=== PATIENT | male | born 1965 | race Caucasian/White ===

== ENCOUNTER 2017-01-30 07:36 | Day surgery (SDC) | payer BC ==
[~2017-01-30 07:36] MED LIST: Buffered Lidocaine 0.9% SYRIN* 5 ML/SYR SYRINGE INTRADERM ONE; Famotidine IV* 10 MG/ML 2 ML (20 mg) IV ONE; Metoclopramide TAB* 10 MG PO ONE
[2017-01-30] MEDS ORDERED: Lidocaine 2% PF * 5 ML VIAL ONE (08:09)
[2017-01-30] MEDS ORDERED: fentaNYL* 50 MCG/ML 2 ML VIAL (100 MCG VIAL) ONE (08:09)
[2017-01-30] MEDS ORDERED: Famotidine IV* 10 MG/ML 2 ML (20 mg) ONE (08:09)
[2017-01-30] MEDS ORDERED: Propofol* 10 MG/ML 20 ML BTL IV PUSH ONE (08:09)
[2017-01-30] MEDS ORDERED: Metoclopramide TAB* 10 MG ONE (08:09)
[2017-01-30] MEDS ORDERED: Ondansetron INJ* 2 MG/ML VIAL ONE (08:09)
[2017-01-30] MEDS ORDERED: Dexamethasone IV* 4 MG/ML 1 ML (4 MG) ONE (08:09)
[2017-01-30] MEDS ORDERED: KETAMINE HCL* 50 MG/ML 10 ML VIAL ONE (08:10)
[2017-01-30] MEDS ORDERED: Midazolam* 1 MG/ML 5 ML VIAL (5 MG) ONE (08:10)
[2017-01-30] MEDS ORDERED: Cisatracurium* 2 MG/ML MDV 5 ML ONE (08:10)
[2017-01-30] MEDS ORDERED: Oxymetazoline 0.05% NASAL SPR* 15 ML BTL ONE ×2 (08:13→08:31)
[2017-01-30] MEDS ORDERED: Bacitracin OINTMENT* 1 TUBE ONE (08:31)
[2017-01-30] MEDS ORDERED: Lidocaine 4% TOPICAL* 50 ML TOP.SOLN ONE (08:31)
[2017-01-30] MEDS ORDERED: Lidocaine 1% MPF wEPI 200,000* 30 ML SDV ONE (08:31)
[2017-01-30] MEDS ORDERED: oxyCODONE/Acetamin 5/325 MG* TAB PO PRN (08:39)
[2017-01-30] MEDS ORDERED: fentaNYL* 50 MCG/ML 2 ML VIAL (100 MCG VIAL) IV PRN (08:39)
[2017-01-30] MEDS ORDERED: Levalbuterol 0.63MG/3ML NEB INH PRN (08:39)
[2017-01-30] MEDS ORDERED: Ondansetron INJ* 2 MG/ML VIAL IV PRN (08:39)
[2017-01-30] MEDS ORDERED: Scopolamine 1.5 mg* PATCH TRANSDERM PRN (08:39)
[2017-01-30] MEDS ORDERED: EPHEDrine (Pressors)* 50 MG/ML VIAL ONE (09:55)
[2017-01-30 12:35] VITALS: BP 152/86
--- NOTE | 2017-01-31 07:49 | OP ---
DATE OF OPERATION: 01/30/17 - [facility] DATE OF : 63 SURGEON: Parminder Hollins MD PORTABLE PINCH RIVETER: None. ANESTHESIOLOGIST: Zenon Jamil MD ANESTHESIA: General. PRE-OP DIAGNOSES: Right nasal cavity polyp, deviated nasal septum, inferior turbinate hypertrophy, bilateral and chronic maxillary and ethmoid sinusitis bilateral. POST-OP DIAGNOSES: Right nasal cavity polyp, deviated nasal septum, inferior turbinate hypertrophy, bilateral and chronic maxillary and ethmoid sinusitis bilateral. OPERATIVE PROCEDURE: Septoplasty, bilateral inferior turbinate reduction, removal of polyp from right nasal cavity, bilateral maxillary antrostomy, and bilateral anterior ethmoidectomy. ESTIMATED BLOOD LOSS: Negligible. SPECIMENS: Right nasal cavity polyp to Pathology separately. The right and left sinus contents were sent separately as well. DESCRIPTION OF PROCEDURE: This is a 51-year-old male who came to see me for nasal airway obstruction. There was also a sense of fluttering in the right side of his nose. Nasal endoscopy in the office revealed significant right septal deviation with a spur as well as a large polyp in the posterior nasal cavity on the right side. The patient also had bilateral inferior turbinate hypertrophy. On questioning, the patient also had symptoms suggestive of chronic sinusitis and so a preoperative CT scan was done, which did demonstrate evidence of chronic inflammation involving ethmoid and maxillary sinuses bilaterally. On 01/30/17, the patient was brought to the operating room. General anesthesia was induced. An oral endotracheal tube was placed. The patient was draped and time-out was performed. The patient had been decongested with topical Afrin and 4% lidocaine was placed in on pledgets as well. The procedure was begun with nasal endoscopy. Photodocumentation of the right nasal polyp and septal spur was obtained. The procedure was then begun with the septoplasty. Approximately 9 cc of 1% lidocaine with epinephrine were infiltrated into both sides of septum as well as the columella. A left hemitransfixion incision was made. A left mucoperichondrial flap was elevated. The quadrangular cartilage was then incised vertically approximately 1 cm posterior to its caudal margin and this enabled elevation of a right mucoperichondrial flap. The flap was elevated posteriorly over the septal spur. There was a tear of the flap on the right hand side over the septal spur , but there was no corresponding tear on the left-sided flap. With the septum widely exposed, a piece of the quadrangular cartilage anteriorly was removed with a Nawaf swivel knife. This facilitated exposure to the more posterior bony ports of the septum. The septal spur was removed with a Thru-Cutting forceps. Once all of the significantly deviated portions of the septal cartilage and bone were removed, the flaps were laid back down. The septum was not reconstructing until the end of the procedure. At this point, attention was turned towards the right nasal cavity. The large polyp in the right nasal cavity was removed with a straight Blakesley forceps. It appeared to be pedicled on the right middle turbinate on its medial aspect. This was sent in separate specimen in formalin. Attention was then turned to the left nasal cavity. Injections were made into the route of the middle turbinate and lateral nasal wall. The uncinate process was then incised and removed. This facilitated exposure of the natural ostium of the maxillary sinus, which was cannulated with a ball-tip probe, enlarged and then additionally enlarged with a combination of forward and back-biting Thru-Cutting instrumentation. A J- curette was used to enter the ethmoid bulla. Anterior ethmoid air cells were then resected with an up-angled Thru-Cutting forceps. The middle turbinate was bolgerized and then attention was turned to the right nasal cavity. Injections were made in the root of the middle turbinate, body of the middle turbinate, and lateral nasal wall. The middle turbinate was then medialized. The uncinate process was taken down. The natural ostium and the maxillary sinus was identified with a ball-tip probe, enlarged and further enlarged with straight and back-biting Thru-Cutting instrumentation. A J-curette was used to enter the ethmoid bulla and anterior ethmoid air cells were removed with an up- angled Thru-Cutting instruments. The inferior turbinates bilaterally were then medialized. Multiple passes were made through the inferior turbinates with the Elmed bipolar device, it was then lateralized. The piece of quadrangular cartilage was then morcellized and placed between flaps and it was sutured in position with chromic. The hemitransfixion incision was then closed and Stammberger Sinu-Foam gel was placed into the middle meatus bilaterally. Magnetic septal splits were then placed and sutured with Prolene. The patient was returned to the care of the anesthesiologist, extubated and delivered to the PACU in stable condition. [id number]/[facility] #: [id number] JAILYN
[2017-02-02] MEDS ORDERED: Scopolomine PATCH Remove* 1 NOTE MISC PATCH OFF ONE (08:40)
== END 2017-01-30 12:50 | disposition home or self-care (01) ==
LOC: OR 07:36
PROVIDERS: ATTEND Otolaryngology
DX: J32.0 Chronic maxillary sinusitis (principal); J32.2 Chronic ethmoidal sinusitis; J33.0 Polyp of nasal cavity; J34.2 Deviated nasal septum; J34.3 Hypertrophy of nasal turbinates
CPT/HCPCS: 88304; A9270-GY; J1100; J2001; J2250; J2405; J2704; J3010

== ENCOUNTER 2017-07-24 07:52 | Day surgery (SDC) | payer BC ==
[~2017-07-24 07:52] MED LIST changes: -Famotidine IV* 10 MG/ML 2 ML (20 mg) IV ONE; +Ibuprofen TAB* 400 MG ONE; +Ibuprofen TAB* 400 MG PO ONE; -Metoclopramide TAB* 10 MG PO ONE; +Sodium Citrate/Citric Acid* 15 ML UDC ONE; +Sodium Citrate/Citric Acid* 15 ML UDC PO ONE; +ceFAZolin 2 GM PREMIX (*) 2 GM/50 ML BAG IVPB ONE
[2017-07-24] MEDS ORDERED: Lidocaine 1% INJ* 10 MG/ML 30 ML SDV ONE (09:35)
[2017-07-24] MEDS ORDERED: Bupivacaine 0.5% SDV PF* 30 ML VIAL ONE (09:35)
[2017-07-24] MEDS ORDERED: fentaNYL* 50 MCG/ML 2 ML VIAL (100 MCG VIAL) ONE (09:43)
[2017-07-24] MEDS ORDERED: Midazolam* 1 MG/ML 2 ML VIAL (2 MG) ONE (09:44)
[2017-07-24] MEDS ORDERED: Propofol* 10 MG/ML 20 ML BTL IV PUSH ONE (09:46)
[2017-07-24] MEDS ORDERED: Dexamethasone IV* 4 MG/ML 1 ML (4 MG) ONE (11:06)
[2017-07-24 11:23] VITALS: BP 130/80
--- NOTE | 2017-07-24 15:01 | RAD ---
INDICATION: Left foot. No other history is provided. COMPARISONS: None relevant TECHNIQUE: Fluoroscopy was provided for a surgical procedure. Total fluoroscopy time is: 1 second FINDINGS: A single spot image demonstrates percutaneous fixation of the second, third, and fourth rays IMPRESSION: FLUOROSCOPY WAS PROVIDED FOR A SURGICAL PROCEDURE CPT II Codes: 6045F
--- NOTE | 2017-07-25 02:51 | OP ---
DATE OF OPERATION: 07/24/17 [facility] DATE OF : 63 SURGEON: Semaj Richardson DPM OFFICE MACHINES SALES REPRESENTATIVE: None. ANESTHESIOLOGIST: Yamil Campbell MD ANESTHESIA: MAC with local. PRE-OP DIAGNOSES: 1. Painful chronic second left hammertoe, left foot. 2. Third left hammertoe. 3. Fourth left hammertoe. POST-OP DIAGNOSES: 1. Painful chronic second left hammertoe, left foot. 2. Third left hammertoe. 3. Fourth left hammertoe. OPERATIVE PROCEDURE: 1. Correction of second left hammertoe with PIPJ arthrodesis and TPJ arthrotomy and extensor tendon lengthening and K-wire fixation. 2. Correction of third left hammertoe with PIPJ arthrodesis and TPJ arthrotomy and extensor tendon lengthening and K-wire fixation. 3. Correction of fourth left hammertoe with PIPJ arthrodesis and TPJ arthrotomy and extensor tendon lengthening and K-wire fixation. INDICATIONS: The patient with chronic and progressive left forefoot pain and deformity with semirigid contractures of toes 2, 3 and 4. The PIPJ of the second left toe is more rigidly contracted. The patient has tried a variety of pad splints and accommodations with the shoes but has pain and irritation and inflammation on the dorsal and plantar aspect of these toes when walking and opted for surgery at this time to decrease the deformity in an attempt to increase the comfort when while wearing shoes and walking. PATHOLOGY: Degenerative bone. HEMOSTASIS: Pneumatic ankle tourniquet. MATERIALS: Three of the 0.062-inch smooth K-wires. DESCRIPTION OF PROCEDURE: The patient was brought to the operating room, placed on the operating room table in the supine position. The anesthesia department administered IV sedation and a peripheral nerve block was performed about the left forefoot with a 1:1 mixture of 1% lidocaine plain and 0.5% Marcaine plain. The left foot was then prepped and draped in the usual fashion. Attention was directed to the dorsal aspect of the second left digit where a curvilinear incision was made. The incision was deepened through subcutaneous tissues with care being taken retract neurovascular structures and cauterize the superficial bleeders as needed. Next, the extensor caraballo was released. The transverse tenotomy and capsulotomy was performed at the PIPJ to allow for exposure of the phalangeal head and the adjacent base of the middle phalanx. Z extensor tendon lengthening procedure was necessary to reduce contractures and a transverse capsulotomy was performed to allow for exposure of the metatarsophalangeal joint. The proximal phalangeal head in the adjacent base and middle phalanx were resected and a power yvette was used to smooth rough edges. The surgical site was flushed with copious amounts of normal sterile saline. Next, a McGlamry elevator was needed to free plantar adhesions at the metatarsophalangeal joint and this being done, allowed for relaxation of contractures. The surgical site was flushed with copious amounts of normal sterile saline. Next, a smooth 0.062 inch K-wire was driven to the base of the middle phalanx to the tip of the toe, retrograded back through the proximal phalanx and across the metatarsophalangeal joint while the toe in the corrected third position. The position was checked with a mini C-arm and the capsular and tendinous structures were reapproximated and secured with 4-0 Vicryl. The subcutaneous tissues were reapproximated with 4-0 Vicryl and the skin was closed with 5-0 nylon. Then, attention was directed to the third digit where using the same surgical technique and instrumentation and fixation, same procedure was performed. Attention was then directed to the fourth digit where using the same surgical technique as well as fixation as well. Closure in both these areas was the same as well. Wires were bent, cut and capped after giving the final positioning and fixation was accessed with the mini C-arm. A 12 mg of dexamethasone phosphate was infiltrated about the surgical sites in total and the incisions were dressed with Xeroform gauze and a dressing with 4x4 gauze, Prasad and ABD pad and a Coban wrap was applied. Prior to covering the toes, the pneumatic ankle tourniquet was deflated about the left ankle and after few moments, a hyperemic response was noted by all 5 digits of the patient's left foot. Having appeared to tolerate the procedures and anesthesia well, the patient was transported via cart from the operating room to Recovery in satisfactory condition with cap refill less than 5 seconds to all digits of the left foot. [id number]/[facility] #: [id number] [facility]
== END 2017-07-24 11:43 | disposition home or self-care (01) ==
LOC: OREAST 07:52
PROVIDERS: ATTEND Podiatrist Foot Surgery
DX: M20.42 Other hammer toe(s) (acquired), left foot (principal); J45.909 Unspecified asthma, uncomplicated; M19.90 Unspecified osteoarthritis, unspecified site
CPT/HCPCS: 76000; A9270-GY; C1776; J0690; J1100; J2250; J2704; J3010